=== PATIENT | male | born 1960 | race Caucasian/White ===

== ENCOUNTER → 2020-09-07 | Day surgery (SDC) | payer OTHER ==
[2020-08-30 15:13] LABS: BASOPHILS % (AUTO) 0.8 % (0-1); EOSINOPHILS # (AUTO) 0.1 X10'3 (0-0.9); EOSINOPHILS % (AUTO) 1.7 % (0-6); LYMPHOCYTES # (AUTO) 1.5 X10'3 (1.1-4.8); MEAN CORPUSCULAR HGB CONC 33.7 g/dL (33.0-36.5); MEAN CORPUSCULAR VOLUME 91.9 FL (78-98); MEAN PLATELET VOLUME 9.8 FL (7.4-10.4); MONOCYTES # (AUTO) 0.5 X10'3 (0-0.9); MONOCYTES % (AUTO) 8.7 % (2-12); NEUTROPHILS # (AUTO) 3.6 X10'3 (1.8-7.7); NEUTROPHILS % (AUTO) 62.8 % (42-75); PRE OP HEMATOCRIT 55.6 % (42.0-52.0); PRE OP PLATELET COUNT 122 X10'3 (140-440); RED BLOOD COUNT 6.05 X10'6 (4.70-6.10); RED CELL DISTRIBUTION WIDTH 14.1 % (11.5-14.5)
[2020-08-30 15:14] LABS: PRE OP HEMOGLOBIN 18.7 g/dL (14.0-17.9)
[2020-08-30 15:32] LABS: ALBUMIN 3.6 G/DL (3.4-5.0); ALBUMIN/GLOBULIN RATIO 0.8 (1.1-1.5); ALKALINE PHOSPHATASE 69 IU/L (46-116); BLOOD UREA NITROGEN 18 MG/DL (7-18); BUN/CREATININE RATIO 16.7 (5.4-32.0); CALCIUM 8.8 MG/DL (8.5-10.1); CHLORIDE 104 MMOL/L (99-107); CREATININE 1.08 MG/DL (0.60-1.10); PRE OP ALT 60 U/L (30-65); PRE OP ANION GAP 9 (8-16); PRE OP AST 47 U/L (10-37); PRE OP BILIRUB, TOTAL 0.6 MG/DL (0.0-1.0); PRE OP GLUCOSE 98 MG/DL (70-104); PRE OP SODIUM 138 MMOL/L (135-145); TOTAL CARBON DIOXIDE 25.5 MMOL/L (24-32); eGFR 70 ML/MIN
[~2020-09-07] VITALS: Ht 157.5 cm; Wt 115.7 kg
[~2020-09-07] MED LIST: BUPIVAcaine 0.5% inj/PF 30 ML ONE; BUPIVAcaine/PF 2.5mg/ml (0.25%) 10ml vial ONE; DOCUMENT DATE & TIME OF BETA-BLOCKER PO ONE; FLO0.4C PO; LIDOcaine 2% (20mg/ml) 5ml vial ONE; METO-384 PO; TRAZ-256 PO; cefazolin/dext.iso 2gm/100ml IV ONE; dexamethasone sod phosphate 10mg/ml inj ONE; famotidine 20mg tablet PO ONE; fentaNYL/PF 50MCG/1 ML 2ML syringe ONE; meperidine/PF 25mg/ml syringe IV PRN; metoprolol tartrate 50mg tablet PO ONE; midazolam 1 mg/ML 2ml injection ONE; morphine 2 MG/ML inj. syringe IV PRN; morphine 4 MG/ML inj SYRINge IV PRN; ondansetron/PF 4mg/2ml inj IV PRN; ondansetron/PF 4mg/2ml inj ONE; proCHLORperazine 10 MG/2 ml inj IV PRN; propofol inj 20 ML IV ONE; ringers solution, lacted 1,000 ML IV SCH; sevoflurane 250ml liquid IH ONE; triamcinolone acetonide 40mg/ml inj ONE; vancomycin 1,500 MG in NS 300ml IV soln IV ONE
[2020-09-07 12:42] VITALS: BP 131/78
[2020-09-07 12:43] VITALS: BP 131/78
[2020-09-07 14:08] VITALS: BP 124/73
--- NOTE | 2020-09-07 14:08 | NUR ---
RECEIVED REPORT ASSUME CARE PT AROUSABLE TO NAME, SUCTION SECREATIONS OUT OF MOUTH WITH YAUNKER BLOODY SPUTUM WITH ANESTH AT BEDSIDE. NO DISTRESS Addendum: 09/07/20 at 1443 by Maria Fernanda Hemphill RN Amended: Links added.
[2020-09-07 14:18] VITALS: BP 120/70
[2020-09-07 14:28] VITALS: BP 116/65
[2020-09-07 14:38] VITALS: BP 117/60
== END | disposition home or self-care (01) ==
LOC: PAS 10:20
PROVIDERS: ATTEND Orthopaedic Surgery
DX: S83.231A Complex tear of medial meniscus, current injury, right knee, initial encounter (principal); S83.271A Complex tear of lateral meniscus, current injury, right knee, initial encounter; M94.261 Chondromalacia, right knee; F32.9 Major depressive disorder, single episode, unspecified; I10 Essential (primary) hypertension; M17.11 Unilateral primary osteoarthritis, right knee; E66.01 Morbid (severe) obesity due to excess calories; Z68.41 Body mass index [BMI] 40.0-44.9, adult; G47.30 Sleep apnea, unspecified; F41.9 Anxiety disorder, unspecified; D75.1 Secondary polycythemia; Z79.899 Other long term (current) drug therapy; Z87.442 Personal history of urinary calculi; X58.XXXA Exposure to other specified factors, initial encounter; Y93.89 Activity, other specified; Y92.89 Other specified places as the place of occurrence of the external cause; Y99.8 Other external cause status
CPT/HCPCS: 29873; 29879; 29880; 36415; 80053; 82948; 85025; 93005; J1100; J2001; J2250; J2405; J2704; J3010; J3301; J3370; J3490; J7040; A4215; A4618; A6250; A6449; A7000; J7120